=== PATIENT | female | born 1975 ===

== ENCOUNTER → 2017-11-02 | Emergency (ER) | payer OTHER ==
[~2017-11-02] VITALS: Ht 162.6 cm; Wt 68.0 kg
[~2017-11-02] MED LIST: BENADRYL25 MG PO
== END | disposition home or self-care (01) ==
LOC: ER 00:45
DX: G44.40 Drug-induced headache, not elsewhere classified, not intractable (principal); T50.995A Adverse effect of other drugs, medicaments and biological substances, initial encounter; Y92.89 Other specified places as the place of occurrence of the external cause

== ENCOUNTER 2019-04-18 14:00 | Inpatient (IN) | payer OTHER ==
[~2019-04-18] VITALS: Ht 160 cm; Wt 86.2 kg
[2019-04-18] MEDS ORDERED: TYLENOL CODEINE PO (15:39)
[2019-04-23] MEDS ORDERED: ACETAMINOPHEN-1 EAC1 (08:17)
[2019-04-25] MEDS ORDERED: KETO10TA2 PO (06:34)
[2019-04-25] MEDS ORDERED: CODE1TAB37 PO (06:35)
== END 2019-04-25 10:49 | disposition home or self-care (01) | DRG 743 ==
LOC: O/R 04-23 07:42 → OB/GYN 04-23 07:42 → SURH 04-23 10:00 → OB/GYN 04-23 15:06
PROVIDERS: ADMIT Obstetrics & Gynecology Gynecology
PROC: 0UT70ZZ Resection of Bilateral Fallopian Tubes, Open Approach (ICD-10-PCS; 2019-04-23)
PROC: 0UT90ZZ Resection of Uterus, Open Approach (ICD-10-PCS; principal; 2019-04-23 10:00)
DX: N92.0 Excessive and frequent menstruation with regular cycle (principal); D25.1 Intramural leiomyoma of uterus; N84.0 Polyp of corpus uteri; N73.6 Female pelvic peritoneal adhesions (postinfective); R10.2 Pelvic and perineal pain